=== PATIENT | female | born 1950 ===

== ENCOUNTER 2017-08-08 00:45 | Emergency (ER) | payer MEDICARE ==
[2017-08-08 01:29] VITALS: BP 0/0
== END 2017-08-08 01:29 | disposition left against medical advice (07) ==
LOC: ED 00:45
DX: R11.2 Nausea with vomiting, unspecified (principal); Z53.21 Procedure and treatment not carried out due to patient leaving prior to being seen by health care provider
CPT/HCPCS: 99282

== ENCOUNTER 2017-08-14 16:45 | Emergency (ER) | payer MEDICARE ==
[2017-08-14] MEDS ORDERED: NS 0.9% 1000 ML* 1,000 ML IV ONE (17:03)
[2017-08-14 17:24] LABS: ABS Basophils 0.2 10^3/ul (0-0.2); ABS Eosinophils 0.2 10^3/ul (0-0.6); ABS Lymphocytes 1.2 10^3/ul (1.0-4.8); ABS Monocytes 0.6 10^3/ul (0-0.8); ABS Nucleated RBC 0 10^3/ul; Eosinophil % 1.1 % (0-6); Hematocrit 42 % (35-47); Lymphocyte % 8.6 % (25-47); Mean Corpuscular HGB Conc 34 g/dl (31-36); Mean Corpuscular Hemoglobin 28 pg (27-31); Mean Corpuscular Volume 82 fL (80-97); Mean Platelet Volume 7 um3 (7.4-10.4); Nucleated Red Blood Cells % 0; Platelet Count 301 10^3/ul (150-450); Red Blood Count 5.05 10^6/ul (4.0-5.4); Red Cell Distribution Width 13 % (10.5-15); White Blood Count 14.1 10^3/ul (3.5-10.8)
[2017-08-14 17:45] LABS: EGFR Non-African American 64.5 (>60)
--- NOTE | 2017-08-14 18:52 | RAD ---
HISTORY: Back pain, right-sided abdominal pain, suprapubic mass COMPARISONS: None relevant TECHNIQUE: Multiple transverse and longitudinal ultrasound images were obtained of the pelvis using grayscale and color Doppler imaging using the endovaginal transducer. FINDINGS: UTERUS: The uterus measures 5.4 x 2.2 x 3.2 cm. There is a 1.7 cm subserosal fibroid of the lateral uterine body. ENDOMETRIUM: The endometrial stripe is smooth. The endometrium measures 0.2 cm in thickness. CUL-DE-SAC: There is no free fluid within the cul-de-sac. RIGHT OVARY: The right ovary is not visualized. LEFT OVARY: The left ovary is not visualized. BLADDER: The bladder is not well visualized. OTHER: None IMPRESSION: 1. FIBROID UTERUS. 2. NO ACUTE SONOGRAPHIC PATHOLOGY OF THE VISUALIZED PORTION THE PELVIS. NO SONOGRAPHIC PATHOLOGY TO CORRESPOND TO THE HISTORY OF SUPRAPUBIC MASS.
[2017-08-14 20:50] LABS: Urine Appearance Clear; Urine Blood 1+ (Negative); Urine Color Straw; Urine Ketones Trace (Negative); Urine Protein 2+(100 mg/dL) (Negative); Urine Specific Gravity 1.009 (1.010-1.030); Urine Urobilinogen Negative (Negative)
[2017-08-14] MEDS ORDERED: Iodixanol* (CONTRAST) 320 MG/ML 100 ML SDV IV ONE (21:31)
[2017-08-14] MEDS ORDERED: Naproxen TAB* 375 MG PO ONE (23:09)
[2017-08-14 23:20] VITALS: BP 122/76
--- NOTE | 2017-08-15 07:55 | RAD ---
INDICATION: Lower abdominal pain. Elevated white blood cell count. Back pain. Post cholecystectomy. Hepatitis C. COMPARISON: July 02, 2007 CT. TECHNIQUE: Multidetector CT images were obtained from the lung bases to the ischial tuberosities with 100 mL Visipaque 320 IV and oral contrast. Multiplanar reformation. REPORT: Minimal basilar atelectasis. Normal size liver with normal parenchymal density. Negative for focal hepatic lesions. Post cholecystectomy with associated mild prominence of the intra and extrahepatic bile ducts. Unremarkable pancreas and spleen. Negative for CT abnormality of the upper GI, small bowel, infra cecal appendix, colon. Negative for ascites, free air, or significant hernias. Normal adrenal glands. Unremarkable kidneys with symmetric nephrograms and pyelograms. Unremarkable nondilated ureters and urinary bladder as well as the anteverted uterus and adnexal regions. Negative for lymphadenopathy. Mild atherosclerotic plaque of normal diameter abdominal aorta and iliac arteries. Physiologic partial distention of the IVC. Negative for suspicious osseous lesions. Advanced facet joint osteoarthritis at L4-L5 and L5-S1. Multilevel mild degenerative spondylosis. IMPRESSION: 1. Post cholecystectomy. Probable typical postcholecystectomy mild prominence of the intra and extrahepatic bile ducts. Correlate with clinical and laboratory assessment. 2. Normal appendix documented. 3. Negative for obstructive uropathy.
[2017-08-15] MEDS ORDERED: Meloxicam(NF) 15 MG TAB PO SCH (09:00)
--- NOTE | 2017-08-15 20:51 | ED ---
Kyle Barnett Jennifer, scribed for Dylan Awan MD on 08/14/17 at 1704 . Back Pain - HPI Summary HPI Summary: The patient is a 67 year old female who presents with back pain that began a few weeks ago and worsened last night. She describes that if she turns, she feels a sharp pain all over her body and feels like her stomach is going to drop out. The patient explains that she came to the ED last week with nausea and vomiting, but went home without seeing a provider after being given anti- nausea medicine. She additionally complains of nausea and loss of appetite today. She denies fever, chills, dysuria, vaginal bleeding, and numbness or weakness in the legs. - History of Current Complaint Stated Complaint: BACK PAIN Hx Obtained From: Patient Onset/Duration: Lasting Weeks - few weeks, Still Present, Worse Since Onset/Duration: Still Present, Worse Since Timing: Constant Severity Initially: Moderate Severity Currently: Moderate Character: Sharp Aggravating Symptom(s): Movement Alleviating Symptom(s): Nothing Associated Signs And Symptoms: Positive: Other - stomach is going to drop out, nausea, loss of appetite. NEGATIVE: fever, chills, dysuria, vaginal bleeding - Allergies/Home Medications Allergies/Adverse Reactions: Allergies Allergy/AdvReac Type Severity Reaction Status Date / Time No Known Allergies Allergy Verified 06/16/12 08:40 PMH/Surg Hx/FS Hx/Imm Hx Endocrine/Hematology History: Reports: Hx Diabetes - AODM-on oral meds only Denies: Hx Bone Marrow Disease, Hx Sickle Cell Disease, Hx Thyroid Disease, Hx Anemia Cardiovascular History: Reports: Hx Hypertension - Controlled with medication Denies: Hx Angina, Hx Cardiomegaly, Hx Congestive Heart Failure, Hx Coronary Artery Disease, Hx Pacemaker/ICD, Hx Peripheral Vascular Disease, Hx Rheumatic Fever, Hx Valvular Heart Disease, Other Cardiovascular Problems/Disorders Respiratory History: Denies: Hx Asthma, Hx Pulmonary Edema, Hx Pulmonary Embolism, Hx Sleep Apnea , Other Respiratory Problems/Disorders GI History: Reports: Hx Gastroesophageal Reflux Disease - Mild-uses medication on ocassion Denies: Hx Cirrhosis, Hx Crohn's Disease, Hx Hiatal Hernia, Hx Irritable Bowel, Hx Jaundice, Hx Ulcer History: Denies: Hx Kidney Infection, Hx Kidney Stones, Other Problems/Disorders Musculoskeletal History: Denies: Hx Arthritis, Hx Bursitis, Hx Tendonitis, Other Musculoskeletal History Sensory History: Reports: Hx Cataracts - currently, Hx Contacts or Glasses - Reading glasses only, Hx Glaucoma - recently diagnosed Denies: Hx Hearing Aid Opthamlomology History: Reports: Hx Cataracts - currently, Hx Contacts or Glasses - Reading glasses only, Hx Glaucoma - recently diagnosed Neurological History: Denies: Hx Headaches, Hx Migraine, Hx Seizures, Other Neuro Impairments/ Disorders Psychiatric History: Denies: Hx Anxiety, Hx Depression - Cancer History Hx Chemotherapy: No Hx Radiation Therapy: No - Surgical History Surgery Procedure, Year, and Place: Tonsillectomy age 14 [facility]. Cholecystectomy 1994 [facility]. Biopsy of liver [facility] [place] (Hep C) Hx Anesthesia Reactions: No Infectious Disease History: Reports: Hx Hepatitis - Hepatitis C Denies: Traveled Outside the [place] in Last 30 Days - Family History Known Family History: Positive: Diabetes - Social History Substance Use Type: Reports: None Review of Systems Negative: Fever, Chills Gastrointestinal: Other Positive: Abdominal Pain - Stomach feels like it's going to drop out, seering pain when she turns, Nausea. Negative: Vomiting Genitourinary: Negative - vaginal bleeding Negative: dysuria All Other Systems Reviewed And Are Negative: Yes Physical Exam - Summary Physical Exam Summary: Appearance: Well-appearing, Well-nourished Skin: Warm, Dry, No rash Eyes: Normal, PERRL, EOMI, sclera anicteric ENT: Normal Neck: Supple, nontender Respiratory: Clear to auscultation Cardiovascular: S1, S2, no murmur, no rub, no gallop Abdomen: Soft, tenderness in the RLQ, suprapubic mass fullness, no organomegaly Bowel sounds: Present Musculoskeletal: Normal, Strength/ROM Intact, no edema, pulses symmetrical Neurological: Normal, A&Ox3, cranial nerves II-XII WNL, follows commands, gait not tested, sensation intact to pin and light touch Psychiatric: affect normal, behavior appropriate, dressed appropriately, judgment intact Triage Information Reviewed: Yes Vital Signs Reviewed: Yes Diagnostics - Laboratory Result Diagrams: 08/14/17 17:12 08/14/17 17:12 Lab Statement: Any lab studies that have been ordered have been reviewed, and results considered in the medical decision making process. - Radiology L-Spine XR Xray Interpretation: No Acute Changes - No Acute disease. Dr. Awan has reviewed this report. Radiology Interpretation Completed By: Radiologist - CT CT Abd/Pel CT Interpretation: Positive (See Comments) - Dilated biliary postcholecystectomy. Dr. Awan has reviewed this report. CT Interpretation Completed By: Radiologist - Additional Comments Diagnostic Additional Comments: Transvaginal Ultrasound. Interpreted by a radiologist. IMPRESSION: 1. FIBROID UTERUS. 2. NO ACUTE SONOGRAPHIC PATHOLOGY OF THE VISUALIZED PORTION THE PELVIS. NO SONOGRAPHIC PATHOLOGY TO CORRESPOND TO THE HISTORY OF SUPRAPUBIC MASS. Dr. Awan has reviewed this report. Back Pain Course/Dx - Course Assessment/Plan: The patient is a 67 year old female who presents with back pain and abdominal pain that began a few weeks ago and worsened last night. In the ED course the patient was given IV fluids. Transvaginal Ultrasound shows 1. FIBROID UTERUS. 2. NO ACUTE SONOGRAPHIC PATHOLOGY OF THE VISUALIZED PORTION THE PELVIS. NO SONOGRAPHIC PATHOLOGY TO CORRESPOND TO THE HISTORY OF SUPRAPUBIC MASS. L-Spine XR was normal, and Abd/Pel CT showed dilated biliary postcholecystectomy. The patient is diagnosed with mechanical back pain. The patient will be discharged from the ED and is instructed to follow up with primary care. - Diagnoses Provider Diagnoses: Possible pancreatic mass Discharge - Discharge Plan Condition: Stable Disposition: HOME Prescriptions: Meloxicam [Mobic] 15 mg PO DAILY PRN 15 Days #15 tablet PRN Reason: Pain - Back Referrals: Fly Sauceda MD [Primary Care Provider] - Additional Instructions: RETURN TO THE EMERGENCY DEPARTMENT FOR CHANGING OR WORSENING SYMPTOMS. The documentation as recorded by the Kyle antonio Jennifer accurately reflects the service I personally performed and the decisions made by , Dylan Awan MD.
--- NOTE | 2017-08-17 13:50 | RAD ---
HISTORY: Low back pain COMPARISONS: None VIEWS: 3 , Frontal, lateral, and coned-down lateral sacral views of the lumbar spine, submitted for review on August 17, 2017 FINDINGS: ALIGNMENT: The alignment is normal. VERTEBRAL BODIES: The vertebral body heights are normal. The interpedicular distances are normal. There is mild anterolateral marginal osteophyte formation. JOINTS: There is extensive facet osteoarthritis at L4-L5 and L5-S1. INTERVERTEBRAL DISCS: There is mild diffuse loss of intervertebral disc height. SOFT TISSUE: Unremarkable. OTHER: The pelvis is unremarkable. The lung bases are clear. IMPRESSION: FACET OSTEOARTHRITIS MOST PRONOUNCED AT L4-L5 AND L5-S1 WITH MILD DEGENERATIVE DISC DISEASE.
== END 2017-08-14 23:30 | disposition home or self-care (01) ==
LOC: ED 16:45
DX: M54.5 Low back pain (principal); R10.9 Unspecified abdominal pain; D25.9 Leiomyoma of uterus, unspecified; K21.9 Gastro-esophageal reflux disease without esophagitis; E11.9 Type 2 diabetes mellitus without complications; Z79.84 Long term (current) use of oral hypoglycemic drugs; M47.9 Spondylosis, unspecified
CPT/HCPCS: 36415; 72100; 74177; 76830; 80053; 81003; 81015; 85025; 87086; 96360; 96374; 99282; A9270-GY; Q9967

== ENCOUNTER 2018-06-25 10:14 | Emergency (ER) | payer MEDICARE ==
[2018-06-25 10:22] VITALS: BP 166/93
--- NOTE | 2018-06-25 10:26 | UC ---
Knee Pain HPI - HPI Summary HPI Summary: 68 yo female presents with RIGHT knee pain. She tells me that 2 weeks ago she tripped and fell onto her b/l knees. Had some constant pain in her right knee for the next day or two, but this improved. Since that time she notices that at bedtime she will have pain in her right knee if she touches the area. This only occurs at bedtime after being on her feet all day. She has not taken anything OTC for her symptoms. Has been applying heat, but no ice to the area. Denies numbness or tingling. She is ambulatory without assistance. - History of Current Complaint Chief Complaint: UCLowerExtremity Stated Complaint: LEG PAIN W/ ACTIVITY Time Seen by Provider: 06/25/18 10:26 Hx Obtained From: Patient Onset/Duration: Gradual Onset Severity Initially: Moderate Severity Currently: Moderate Pain Intensity: 6 Pain Scale Used: 0-10 Numeric - Allergies/Home Medications Allergies/Adverse Reactions: Allergies Allergy/AdvReac Type Severity Reaction Status Date / Time No Known Allergies Allergy Verified 06/25/18 10:22 PMH/Surg Hx/FS Hx/Imm Hx Endocrine History: Diabetes Cardiovascular History: Hypertension Psychological History: Anxiety, Depression - Surgical History Surgical History: Yes Surgery Procedure, Year, and Place: Tonsillectomy age 14 [facility]. Cholecystectomy 1994 [facility]. Biopsy of liver [facility] [place] 2011 (Hep C) - Family History Known Family History: Positive: Diabetes - Social History Alcohol Use: None Substance Use Type: Other Substance Use Comment - Amount & Last Used: Former Smoking Status (MU): Light Every Day Tobacco Smoker Review of Systems All Other Systems Reviewed And Are Negative: Yes Constitutional: Positive: Negative Skin: Positive: Negative Respiratory: Positive: Negative Cardiovascular: Positive: Negative Neurovascular: Positive: Negative Musculoskeletal: Positive: Other: - Right knee pain Neurological: Positive: Negative Psychological: Positive: Negative Physical Exam - Summary Physical Exam Summary: GENERAL: NAD. WDWN. No pain distress. SKIN: No rashes, sores, lesions, or open wounds. CHEST: No accessory muscle use. Breathing comfortably and in no distress. CV: . Pulses intact popliteal, PT, and DP. Cap refill <2seconds MSK: RIGHT KNEE: Mild TTP overlying medial joint space. FROM without pain. Strength 5/5. No edema or obvious bony deformities. No patella apprehension. Negative Vince, A/P drawer, Anthony, and varus/valgus stress. NEURO: Alert. Sensations intact and symmetric B/L LEs PSYCH: Age appropriate behavior. Triage Information Reviewed: Yes Vital Signs: Initial Vital Signs Temp 98.5 F 06/25/18 10:19 Pulse 91 06/25/18 10:19 Resp 20 06/25/18 10:19 BP 166/93 06/25/18 10:19 Pulse Ox 98 06/25/18 10:19 Vital Signs Reviewed: Yes Knee Pain Course/Dx - Course Course Of Treatment: XR: IMPRESSION: NO ACUTE OSSEOUS INJURY. IF SYMPTOMS PERSIST, RECOMMEND REPEAT IMAGING. Suspect contusion vs muscle strain. Advised to try tylenol and ice her knee. f/u with Ortho is symptoms persist. - Differential Dx/Diagnosis Provider Diagnosis: Right knee pain Discharge - Sign-Out/Discharge Documenting (check all that apply): Patient Departure All imaging exams completed and their final reports reviewed: Yes - Discharge Plan Condition: Stable Disposition: HOME Patient Education Materials: Knee Pain (ED) Referrals: Fly Sauceda MD [Primary Care Provider] - Tarah Floyd MD [Medical Doctor] - If Needed Additional Instructions: If you develop a fever, shortness of breath, chest pain, new or worsening symptoms - please call your PCP or go to the ED. Your blood pressure was high at todays visit. Please see your primary provider within 4 weeks for recheck and re-evaluation. 1) Rest, Ice, and elevate your knee as much as possible 2) Please call Orthopedics at the number below to schedule a follow up if needed for further evaluation regarding your knee pain - Billing Disposition and Condition Condition: STABLE Disposition: Home - Attestation Statements Provider Attestation: I was available for consult. This patient was seen by the RODERICK. The patient was not presented to, seen by, or examined by me. -Naila
== END 2018-06-25 11:15 | disposition home or self-care (01) ==
LOC: UCEAST 10:14
DX: M25.561 Pain in right knee (principal); E11.9 Type 2 diabetes mellitus without complications; I10 Essential (primary) hypertension; F17.200 Nicotine dependence, unspecified, uncomplicated
CPT/HCPCS: 99211; G0463